=== PATIENT | male | born 1960 | race Two or more races ===

== ENCOUNTER 2020-04-08 07:49 | Outpatient (REF) | payer OTHER, SELFPAY ==
[2020-04-08 08:16] LABS: COVID-19 Test Negative (Negative)
== END 2020-04-08 07:50 | disposition home or self-care (01) ==
LOC: HO.LAB 07:49
PROVIDERS: Visit Provider Internal Medicine
DX: Z20.828 Contact with and (suspected) exposure to other viral communicable diseases (principal)
CPT/HCPCS: 87635; C9803